=== PATIENT | male | born 1990 | race Caucasian/White ===

== ENCOUNTER 2018-04-17 09:12 | Emergency (ER) | payer OTHER ==
[2018-04-17 09:34] LABS: PLATELET COUNT 303 10^3/uL (150-400)
[2018-04-17] MEDS ORDERED: NS 1,000 ML IV ONE (09:34)
--- NOTE | 2018-04-17 09:37 | EDPHY ---
H & P Stated Complaint: Rt abd pain, N/V Time Seen by Provider: 04/17/18 09:20 HPI/ROS: CHIEF COMPLAINT: Abdominal pain HISTORY OF PRESENT ILLNESS: The patient presents to the ED with a 2 day history of abdominal pain. The patient reports pain localized to the right lower quadrant. He reports mild nausea. He denies fever or last of appetite. The patient does report some exacerbation of the pain with high impact. Patient denies fever. The patient was seen at the [facility] and referred to the ED for further evaluation. REVIEW OF SYSTEMS: A comprehensive 10 point review of systems is otherwise negative aside from elements mentioned in the history of present illness. Source: Patient Exam Limitations: No limitations - Personal History Current Tetanus/Diphtheria Vaccine: Unsure Current Tetanus Diphtheria and Acellular Pertussis (TDAP): Unsure - Medical/Surgical History Hx Asthma: No Hx Chronic Respiratory Disease: No Hx Diabetes: No Hx Cardiac Disease: No Hx Renal Disease: No Hx Cirrhosis: No Hx Alcoholism: No Hx HIV/AIDS: No Hx Splenectomy or Spleen Trauma: No Other PMH: tonsillectomy - Social History Smoking Status: Never smoked - Physical Exam Exam: General Appearance: Alert, no distress Eyes: Pupils equal and round no pallor or injection ENT, Mouth: Mucous membranes moist Respiratory: There are no retractions, lungs are clear to auscultation Cardiovascular: Regular rate and rhythm Gastrointestinal: Mild tenderness to palpation noted in the right lower quadrant, negative Rovsing, negative obturator's sign Neurological: 5/5 strength all 4 extremities Skin: Warm and dry, no rashes Musculoskeletal: Neck is supple nontender Extremities: symmetrical, full range of motion Psychiatric: Patient is oriented X 3, there is no agitation Constitutional: Initial Vital Signs Temperature (C) 36.6 C 04/17/18 09:18 Heart Rate 76 04/17/18 09:18 Respiratory Rate 16 04/17/18 09:18 Blood Pressure 134/80 H 04/17/18 09:18 O2 Sat (%) 97 04/17/18 09:18 O2 Delivery Mode Room Air Allergies/Adverse Reactions: No Known Allergies Allergy (Unverified 04/17/18 09:18) Home Medications: Medication Instructions Recorded NK [No Known Home Meds] 04/17/18 Medical Decision Making - Diagnostics Imaging Results: Imaging Impressions Abdomen Ultrasound 04/17/18 09:28 Impression: Tubular structure measuring 3.5 mm may represent the appendix, though extension to the cecum was not demonstrated. No secondary signs to suggest appendicitis. Findings and recommendations discussed with Nolan Lawrence at 1026 hour, . Abdomen CT 04/17/18 10:28 Impression: 1. Normal CT abdomen and pelvis with contrast enhancement. 2. No CT evidence of appendicitis, abscess or bowel obstruction. Findings discussed with Nolan Lawrence M.D. at 11:23 hour, 04/17/2018. ED Course/Re-evaluation: The patient presents the ED for evaluation of right lower quadrant pain. The patient was noted to be afebrile without a significant leukocytosis. The patient did have moderate reproducible tenderness in the right lower quadrant. Clinically the patient is at a low but not zero pretest probability for appendicitis. Initially, an abdominal ultrasound was ordered which was inconclusive. I reexamined the patient again at 10:30 a.m.: He continues to have ongoing right lower quadrant tenderness. We discussed the risks and benefits of CT scanning and have decided to proceed for evaluation of possible appendicitis. CT scan demonstrates no evidence of obvious appendicitis. I re-evaluated the patient at 11:30 a.m.. Our plan will be for observation at home over the next day. The patient has been informed that early appendicitis is difficult to fully exclude in that if he has progressive worsening pain he needs to return to the ED immediately. He should return to the emergency department tomorrow for recheck for any ongoing symptoms. Differential Diagnosis: Differential diagnosis considered includes appendicitis, mesenteric adenitis, gastroenteritis - Data Points Laboratory Results: Laboratory Results 04/17/18 09:25 04/17/18 09:25 04/17/18 04/17/18 09:25 09:25 WBC 5.98 10^3/uL 10^3/uL (3.80-9.50) RBC 5.40 10^6/uL 10^6/uL (4.40-6.38) Hgb 16.7 g/dL g/dL (13.7-17.5) Hct 47.6 % % (40.0-51.0) MCV 88.1 fL fL (81.5-99.8) MCH 30.9 pg pg (27.9-34.1) MCHC 35.1 g/dL g/dL (32.4-36.7) RDW 12.3 % % (11.5-15.2) Plt Count 303 10^3/uL 10^3/uL (150-400) MPV 9.4 fL fL (8.7-11.7) Neut % (Auto) 49.4 % % (39.3-74.2) Lymph % (Auto) 35.3 % % (15.0-45.0) [place] % (Auto) 12.2 % % (4.5-13.0) Eos % (Auto) 1.7 % % (0.6-7.6) Baso % (Auto) 1.2 % % (0.3-1.7) Nucleat RBC Rel Count 0.0 % % (0.0-0.2) Absolute Neuts (auto) 2.96 10^3/uL 10^3/uL (1.70-6.50) Absolute Lymphs (auto) 2.11 10^3/uL 10^3/uL (1.00-3.00) Absolute Monos (auto) 0.73 10^3/uL 10^3/uL (0.30-0.80) Absolute Eos (auto) 0.10 10^3/uL 10^3/uL (0.03-0.40) Absolute Basos (auto) 0.07 10^3/uL 10^3/uL (0.02-0.10) Absolute Nucleated RBC 0.00 10^3/uL 10^3/uL (0-0.01) Immature Gran % 0.2 % % (0.0-1.1) Immature Gran # 0.01 10^3/uL 10^3/uL (0.00-0.10) Sodium 142 mEq/L mEq/L (135-145) Potassium 4.1 mEq/L mEq/L (3.3-5.0) Chloride 104 mEq/L mEq/L (97-110) Carbon Dioxide 27 mEq/l mEq/l (22-31) Anion Gap 11 mEq/L mEq/L (6-14) BUN 13 mg/dL mg/dL (7-23) Creatinine 0.8 mg/dL mg/dL (0.7-1.3) Estimated GFR > 60 Glucose 91 mg/dL mg/dL (70-100) Calcium 9.8 mg/dL mg/dL (8.5-10.4) Medications Given: Discontinued Medications Sodium Chloride (Ns) 1,000 mls @ 0 mls/hr IV ONCE ONE PRN Reason: Wide Open Stop: 04/17/18 09:35 Last Admin: 04/17/18 09:34 Dose: 1,000 mls Departure - Departure Disposition: Home, Routine, Self-Care Clinical Impression: Abdominal pain Qualifiers: Abdominal location: right lower quadrant Qualified Code(s): R10.31 - Right lower quadrant pain Condition: Good Instructions: Acute Abdominal Pain (ED) Additional Instructions: Sometimes we are unable to diagnose an obvious cause of abdominal pain in the Emergency Department. Based upon our evaluation today, we see no obvious explanation for your pain. Because more serious conditions can be difficult to diagnose early in the course of their presentation, we ask that you return to the Emergency Department in 8-12 hours for a recheck if you are still having pain. This is necessary to exclude the development of a more serious condition such as appendicitis or other intra-abdominal emergency. In the event your pain markedly increases before that time or you develop intractable vomiting or fever return to the Emergency Department immediately. Take Ibuprofen or Motrin 600 mg by mouth three times a day.
[2018-04-17] MEDS ORDERED: IOPAMIDOL (ISOVUE-300) 100 ML BTL ONE (10:40)
[2018-04-17 11:41] VITALS: BP 124/85
== END 2018-04-17 11:40 | disposition home or self-care (01) ==
DX: R10.31 Right lower quadrant pain (principal)
CPT/HCPCS: Q9967